=== PATIENT | male | born 1985 | race Caucasian/White ===

== ENCOUNTER 2024-07-02 21:38 | Inpatient (IN) | payer OTHER, MEDICAID ==
[2024-07-02] MEDS ORDERED: Lorazepam 1 MG TAB ONE (22:04)
[2024-07-02] MEDS ORDERED: Boostrix 0.5 ML (Tdap) VIAL (>/=7 yrs of age) ONE (22:04)
[2024-07-02] MEDS ORDERED: Lidocaine 1% PF 5 ML VIAL ONE (22:04)
[2024-07-02] MEDS ORDERED: CEFAZOLIN 2 GM VIAL ONE (22:58)
[2024-07-02] MEDS ORDERED: Morphine 4 MG/ML VIAL ONE (22:58)
[2024-07-02] MEDS ORDERED: Sodium Chloride 0.9% 100 ML ONE (22:58)
[2024-07-02 23:31] LABS: #Basophils 0.09 10x3/uL (0.0-0.2); %Basophils 1.1 % (0.0-1.0); %Eosinophils 4.3 % (0.0-10.0); %Monocytes 6.7 % (0.0-10.0); %Neutrophils 72.7 % (42.0-75.0); Hematocrit 44.1 % (42.0-52.0); Hemoglobin 15.2 g/dL (14.0-18.0); Mean Corpuscular HGB CONC 34.5 g/dL (32.0-36.0); Mean Corpuscular Hemoglobin 31.6 pg (27.0-31.0); Mean Corpuscular Volume 91.7 fL (78.0-98.0); Mean Platelet Volume 10.1 fL (7.4-10.4); Platelet Count 273 10x3/uL (130-400); RBC Distribution Width 12.9 % (11.5-14.5); Red Blood Cell (RBC) Count 4.81 mill/uL (4.70-6.10)
[2024-07-02] MEDS ORDERED: Vancomycin 1 GM/200 ML (FROZEN) BAG ONE (23:42)
[2024-07-02 23:49] LABS: ALT (SGPT) 15 U/L (Less than 45); AST (SGOT) 30 U/L (11-34); Albumin 3.8 g/dL (3.1-4.5); Alkaline Phosphatase 97 U/L (40-110); Anion Gap 15 mmol/L (10-20); BUN (Urea Nitrogen) 7 mg/dL (8.9-20.6); Bilirubin, Total 0.3 mg/dL (0.3-1.2); Calc. Creatinine Clearance 0 mL/min (70-130); Carbon Dioxide 27 mmol/L (22-29); Chloride 103 mmol/L (98-107); Estimated GFR 98; Globulin 2.8 g/dL (2.4-3.5); Glucose 92 mg/dL (70-105); Potassium 4.1 mmol/L (3.5-5.1); Protein, Total 6.6 g/dL (6.0-8.3); Sodium 141 mmol/L (136-145)
[2024-07-03] MEDS ORDERED: Dextrose 50% Abboject 50 ML SYRINGE SLOW IVP PRN (00:04)
[2024-07-03] MEDS ORDERED: Dextrose 5% in Water 1,000 ML IV PRN (00:04)
[2024-07-03] MEDS ORDERED: Glucagon 1 MG/ML KIT IM PRN (00:04)
[2024-07-03] MEDS ORDERED: Insulin Lispro 100 UNIT/ML 10 ML VIAL SC PRN (00:04)
[2024-07-03] MEDS: metroNIDAZOLE 500 MG in Premix 1 BAG IVPB SCH (01:23)
[2024-07-03] MEDS: Morphine 4 MG/ML VIAL SLOW IVP PRN (01:23)
[2024-07-03] MEDS: Gabapentin 300 MG CAP PO SCH ×2 (01:32→21:08)
[2024-07-03] MEDS: Amitriptyline HCl 25 MG TAB PO SCH ×2 (01:32→21:10)
[2024-07-03] MEDS: Diazepam 5 MG TAB PO PRN (04:53)
[2024-07-03] MEDS: fentaNYL 50 mcg/mL 1 mL Vial SLOW IVP SCH (04:53)
[2024-07-03] MEDS: CEFAZOLIN 1 GM in Sodium Chloride 0.9% 100 ML IVPB SCH (04:54)
[2024-07-03] MEDS: Sodium Chloride 0.9% 1,000 ML IV SCH (05:17)
[2024-07-03] MEDS: Famotidine/PF 20 mg/2ml Vial SLOW IVP SCH (08:33)
[2024-07-03] MEDS: Famotidine 20 MG TAB PO SCH (08:33)
[2024-07-03] MEDS: Ondansetron PF 4 MG/2 ML Vial IVP PRN (08:35)
[2024-07-03] MEDS: FLU (Fluarix Triv) TS24-25(6MOS UP)/PF 45 MCG/0.5 ML Syringe IM ONE (08:41)
[2024-07-03 09:57] LABS: #Basophils 0.05 10x3/uL (0.0-0.2); %Basophils 0.4 % (0.0-1.0); %Eosinophils 1.7 % (0.0-10.0); %Lymphocytes 8.4 % (21.0-51.0); %Monocytes 8.2 % (0.0-10.0); Hematocrit 42.7 % (42.0-52.0); Hemoglobin 14.5 g/dL (14.0-18.0); Mean Corpuscular Hemoglobin 31.7 pg (27.0-31.0); Mean Corpuscular Volume 93.2 fL (78.0-98.0); Mean Platelet Volume 10.3 fL (7.4-10.4); Platelet Count 244 10x3/uL (130-400); RBC Distribution Width 12.9 % (11.5-14.5); Red Blood Cell (RBC) Count 4.58 mill/uL (4.70-6.10)
[2024-07-03 10:21] LABS: Anion Gap 17 mmol/L (10-20); BUN (Urea Nitrogen) 6 mg/dL (8.9-20.6); Calc. Creatinine Clearance 105 mL/min (70-130); Calcium 8.9 mg/dL (7.8-10.44); Carbon Dioxide 21 mmol/L (22-29); Chloride 105 mmol/L (98-107); Estimated GFR 119; Glucose 89 mg/dL (70-105); Potassium 3.9 mmol/L (3.5-5.1); Sodium 139 mmol/L (136-145)
[2024-07-03] MEDS: Morphine ER 30 MG TAB PO SCH (10:45)
[2024-07-03] MEDS ORDERED: Lidocaine 2% PF 5 ML VIAL ONE (13:01)
[2024-07-03] MEDS ORDERED: PROPOFOL 20 ML ONE (13:01)
[2024-07-03] MEDS ORDERED: Bupivacaine PF 0.5% 30 ML VIAL ONE (13:06)
[2024-07-03] MEDS ORDERED: Midazolam HCl 2 mg/2 ml Vial ONE (14:15)
[2024-07-03] MEDS ORDERED: fentaNYL PF 100 MCG/2 ML SYRINGE ONE (14:15)
[2024-07-03] MEDS ORDERED: Ondansetron PF 4 MG/2 ML Vial ONE (15:00)
[2024-07-03] MEDS ORDERED: Ketorolac Tromethamine 30 MG (1 mL) VIAL ONE (15:00)
[2024-07-03] MEDS ORDERED: Dexamethasone 20 MG/5 ML VIAL ONE (15:00)
[2024-07-03] MEDS: CEFAZOLIN 2 GM in Sodium Chloride 0.9% 100 ML IVPB SCH (21:07)
[2024-07-03] MEDS ORDERED: CEFAZOLIN 1 GM in Sodium Chloride 0.9% 100 ML IVPB SCH (22:00)
[2024-07-03] MEDS: oxyCODONE/Acetaminophen 5 mg/325 mg Tablet PO PRN (23:34)
[2024-07-04] MEDS: Pantoprazole 40 MG VIAL IVP SCH (10:11)
[2024-07-04] MEDS: Enoxaparin 40 MG (0.4 mL) SYRINGE SC SCH (10:13)
[2024-07-04 11:36] VITALS: TEMP 97.8
[2024-07-04 11:45] VITALS: BP 93/57
== END 2024-07-04 11:37 | disposition home or self-care (01) | DRG 505 ==
LOC: ERS 21:38 → SURG B 23:19 → OBSVTOIN 07-03 00:04
PROVIDERS: ADMIT Specialist; ATTEND Specialist
PROC: 0QSQ04Z Reposition Right Toe Phalanx with Internal Fixation Device, Open Approach (ICD-10-PCS; principal; 2024-07-03)
DX: S92.411B Displaced fracture of proximal phalanx of right great toe, initial encounter for open fracture (principal); Z99.3 Dependence on wheelchair; W22.8XXA Striking against or struck by other objects, initial encounter
CPT/HCPCS: 36415; 80048; 80053; 85025; 86850; 86900; 86901; 90715; G0378; J0665; J0690; J1100; J1650; J1885; J2250; J2270; J2405; J2470; J2704; J3010; J3370; J3490; J7030